=== PATIENT | female | born 1995 | race Caucasian/White ===

== ENCOUNTER 2017-10-06 10:57 | Emergency (ER) | payer SELFPAY ==
[2017-10-06 11:11] VITALS: BMI 52.7
--- NOTE | 2017-10-06 11:30 | PDOC ---
History of Present Illness - General History Source: Patient, EMS Exam Limitations: No Limitations - History of Present Illness Initial Comments: 10/06/17 11:38 The patient is a 22 year old female, with a significant past medical history of asthma and arthritis, who presents to the emergency department via EMS, with multiple complaints. The patient states that since she woke up this morning she has had a feeling of chest tightness similar to previous asthma exacerbations that has been progressively worsening throughout the day. The patient states she went to school but the chest tightness was worsening so she called EMS for transport to the ED. The patient reports EMS administered one breathing treatment with minimal relief. As per the patients second complaint, she states she has had intermittent right upper quadrant abdominal pain for approx 3-4 days. 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 The patient reports approx. 3 additional episodes of emesis and diarrhea (non bloody) over the past couple of days. The patient states she was evaluated at [facility] a few months ago and diagnosed with an enlarged liver. She denies any sick contacts and states her LMP was 1 week ago. She denies recent fevers, chills, headache or dizziness. She denies recent dysuria, frequency, urgency or hematuria. She denies recent chest pain or palpitations. Allergies: NKA Primary Care Physician: Dr. Kaplan <Herb Sen - Last Filed: 10/06/17 11:53> <Chanel Landers - Last Filed: 10/06/17 15:47> - General Chief Complaint: Pain Stated Complaint: DIFFICULTY BREATHING, ABD Pain Time Seen by Provider: 10/06/17 11:14 Past History <Herb Sen - Last Filed: 10/06/17 11:53> - Suicide/Smoking/Psychosocial Hx Smoking History: Never smoked Have you smoked in the past 12 months: No Information on smoking cessation initiated: No Hx Alcohol Use: No Drug/Substance Use Hx: No <Chanel Landers - Last Filed: 10/06/17 15:47> - Past Medical History Allergies/Adverse Reactions: Allergies Allergy/AdvReac Type Severity Reaction Status Date / Time No Known Allergies Allergy Unverified 10/06/17 11:11 Home Medications: Ambulatory Orders Albuterol Sulfate Inhaler - [Ventolin Hfa Inhaler -] 1 puff IH PRN 10/06/17 Ondansetron [Zofran Odt -] 4 mg GT TID PRN #10 tab.rapdis 10/06/17 Review of Systems - Review of Systems Comments:: 10/06/17 11:50 GENERAL/CONSTITUTIONAL: No fever or chills. No weakness. HEAD, EYES, EARS, NOSE AND THROAT: No change in vision. No ear pain or discharge. No sore throat. GASTROINTESTINAL: +Nausea. +Emesis. +Diarrhea. No constipation. GENITOURINARY: +RUQ abdominal pain. No dysuria, frequency, or change in urination. CARDIOVASCULAR: +Shortness of breath. +Chest tightness. No chest pain. RESPIRATORY: No cough, wheezing, or hemoptysis. MUSCULOSKELETAL: No joint or muscle swelling or pain. No neck or back pain. SKIN: No rash NEUROLOGIC: No headache, vertigo, loss of consciousness, or change in strength/ sensation. ENDOCRINE: No increased thirst. No abnormal weight change. HEMATOLOGIC/LYMPHATIC: No anemia, easy bleeding, or history of blood clots. ALLERGIC/IMMUNOLOGIC: No hives or skin allergy. <Herb Sen - Last Filed: 10/06/17 11:53> *Physical Exam - Vital Signs Last Vital Signs Temp Pulse Resp BP Pulse Ox 98.1 F 94 H 18 126/71 98 10/06/17 11:08 10/06/17 11:08 10/06/17 11:08 10/06/17 11:08 10/06/17 11:08 - Physical Exam Comments: 10/06/17 11:53 Constitutional: Awake, alert, oriented. No acute distress. Non toxic appearing. Head: Normocephalic. Atraumatic Eyes: PERRL. EOMI. Conjunctivae are not pale. ENT: Mucous membranes are moist and intact. Posterior pharynx without exudates or erythema. Uvula midline. Neck: Supple. Full ROM. No lymphadenopathy. Cardiovascular: Regular rate. Regular rhythm. S1, S2 regular. Distal pulses are 2+ and symmetric. Pulmonary/Chest: No evidence of respiratory distress. Clear to auscultation bilaterally No wheezing, rales or rhonchi. Abdominal: +Obese. +RUQ tenderness. Soft and non-distended. No rebound, guarding or rigidity. Back: +Right flank tenderness but no CVA tenderness. Musculoskeletal: No edema. No cyanosis. No clubbing. Full range of motion in all extremities. No calf tenderness. Radial/pedal pulses are intact and 2+ bilaterally Skin: Skin is warm and dry. No petechiae. No purpura. Neurological: Alert and oriented to person, place, and time. Cranial nerves II -XII are grossly intact. Normal speech. Strength is grossly symmetric. No sensory deficits. Psychiatric: Good eye contact. Normal interaction, affect and behavior. 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 -ua/ucg -ivf hydration -RUQ u/s 10/06/17 15:35 pt states feeling better. no n/v/d while in the ED labs reviewed, mildly elevated WBC-suspect viral illness ultrasound shows fatty liver infiltration, no acute hepatitis or lacey discussed labs and imaging results with the patient pt stable for d/c to home has appt with GI in the [place] for Friday <Chanel Landers - Last Filed: 10/06/17 15:47> *DC/Admit/Observation/Transfer - Attestations Scribe Attestion: 10/06/17 11:50 Documentation prepared by Herb Sen, acting as medical education manager for Chanel Landers DO. <Herb Sen - Last Filed: 10/06/17 11:53> - Discharge Dispostion Admit: No - Attestations Physician Attestion: 10/06/17 15:47 I, Dr. Chanel Landers DO, attest that this document has been prepared under my direction and personally reviewed by me in its entirety. I further attest, that it accurately reflects all work, treatment, procedures and medical decision -making performed by me. <Chanel Landers - Last Filed: 10/06/17 15:47> Diagnosis at time of Disposition: Nausea & vomiting, Epigastric abdominal pain, Fatty liver - Discharge Dispostion Disposition: HOME Condition at time of disposition: Stable - Prescriptions Prescriptions: Ondansetron [Zofran Odt -] 4 mg GT TID PRN #10 tab.rapdis PRN Reason: Nausea - Referrals Referrals: Pelon Valdes MD [Staff Physician] - Leroy White MD [Staff Physician] - - Patient Instructions Printed Discharge Instructions: DI for Nausea -- Adult, DI for Diarrhea and Traveler's Diarrhea -- Adult Additional Instructions: Please keep your appointment with your GI specialist for friday. Please return to the ED with any further concerns or complaints. Please take all medications as prescribed.
[2017-10-06] MEDS ORDERED: ONDANSETRON 4 MG/2 ML VIAL IVPUSH ONE (11:31)
[2017-10-06] MEDS ORDERED: ALBUTEROL SO4 2.5/IPRATROPIUM 0.5 INH SOL 3 ML VIAL.NEB. NEB ONE ×2 (11:31→11:47)
[2017-10-06] MEDS ORDERED: SODIUM CHLORIDE 0.9% 1000 ML INFUS.BAG IV ONE (11:31)
[2017-10-06] MEDS ORDERED: ONDANSETRON 4 MG/2 ML VIAL ONE (11:47)
[2017-10-06 12:35] LABS: BASO % 0.5 % (0-2.0); EOS % 0.5 % (0-4.5); HEMATOCRIT 38.4 % (32.4-45.2); HEMOGLOBIN 12.4 GM/dL (10.7-15.3); LYMPH % 24.2 % (8-40); MCH 25.6 pg (25.7-33.7); MCHC 32.3 g/dl (32.0-36.0); MEAN CELL VOLUME 79.1 fl (80-96); MEAN PLT VOLUME 9.5 fl (7.5-11.1); MONO % 5.3 % (3.8-10.2); NEUT % 69.5 % (42.8-82.8); PLATELET COUNT 386 K/MM3 (134-434); RBC 4.86 M/mm3 (3.60-5.2); RDW 16.6 % (11.6-15.6); WHITE BLOOD COUNT 11.1 K/mm3 (4.0-10.0)
[2017-10-06 12:53] LABS: ALBUMIN 3.5 g/dl (3.4-5.0); ANION GAP 7 (8-16); BLOOD UREA NITROGEN 14 mg/dL (7-18); CALCIUM 8.5 mg/dL (8.5-10.1); CHLORIDE 107 mmol/L (98-107); CO2 24 mmol/L (21-32); CREATININE 0.6 mg/dL (0.55-1.02); GLUCOSE,RANDOM 77 mg/dL (74-106); LIPASE 85 U/L (73-393); SGPT/ALT 22 U/L (12-78); SODIUM 138 mmol/L (136-145)
[2017-10-06 12:54] LABS: ALK PHOS 156 U/L (45-117); BILIRUBIN,TOTAL 0.3 mg/dL (0.2-1.0); TOT PROT 7.7 g/dl (6.4-8.2)
[2017-10-06 12:55] LABS: POTASSIUM 4.6 mmol/L (3.5-5.1); SGOT/AST 23 U/L (15-37)
[2017-10-06 14:53] LABS: HCG,QUALITATIVE URINE NEGATIVE
[2017-10-06 14:54] LABS: URINE APPEARANCE SLCLOUDY; URINE BILIRUBIN NEGATIVE (NEGATIVE); URINE BLOOD 2+ (NEGATIVE); URINE COLOR YELLOW; URINE GLUCOSE (UA) NEGATIVE (NEGATIVE); URINE KETONE NEGATIVE (NEGATIVE); URINE LEUK ESTERASE TRACE (NEGATIVE); URINE NITRITE NEGATIVE (NEGATIVE); URINE PROTEIN NEGATIVE (NEGATIVE); URINE UROBILINOGEN NEGATIVE mg/dL (0.2-1.0)
[2017-10-06 15:45] LABS: EPI CELLS RARE /HPF (FEW); URINE BACTERIA RARE /hpf (NONE SEEN); URINE MUCUS MODERATE
[2017-10-06 16:18] VITALS: BP 123/77; PULSE 78; TEMP 98.8
== END 2017-10-06 16:00 | disposition home or self-care (01) ==
LOC: JER 10:57
PROC: 3E0F7GC Introduction of Other Therapeutic Substance into Respiratory Tract, Via Natural or Artificial Opening (ICD-10-PCS; principal; 2017-10-06)
PROC: 3E033GC Introduction of Other Therapeutic Substance into Peripheral Vein, Percutaneous Approach (ICD-10-PCS; 2017-10-06)
DX: K76.0 Fatty (change of) liver, not elsewhere classified (principal); R10.11 Right upper quadrant pain; R11.2 Nausea with vomiting, unspecified
CPT/HCPCS: 36415; 76705-TC; 80053; 81003; 81015; 83690; 84703; 85025; 99282-25; J7030